=== PATIENT | male | born 1985 | race Caucasian/White ===

== ENCOUNTER 2023-11-11 11:59 | Emergency (ER) | payer OTHER ==
[2023-11-11 12:09] VITALS: BP 124/80; PULSE 89; RESP 19; TEMP 98.4; BMI 20.9
[2023-11-11] MEDS: LIDOCAINE 4% PATCH TP ONE (13:15)
[2023-11-11] MEDS: ACETAMINOPHEN 500 MG TABLET (FP) PO ONE (13:45)
[2023-11-11] MEDS: KETOROLAC TROMETHAMINE 30 MG/1 ML VIAL IM ONE (13:45)
[2023-11-11] MEDS ORDERED: LIDOCAINE PATCH REMOVAL MC ONE (22:00)
== END 2023-11-11 14:31 | disposition home or self-care (01) ==
LOC: JERFT 11:59
PROC: 3E0233Z Introduction of Anti-inflammatory into Muscle, Percutaneous Approach (ICD-10-PCS; principal; 2023-11-11)
DX: M54.50 Low back pain, unspecified (principal)
CPT/HCPCS: 72100-TC-FY; 99284-25